=== PATIENT | female | born 1990 | race Caucasian/White ===

== ENCOUNTER 2019-05-10 18:05 | Emergency (ER) | payer OTHER, SELFPAY ==
[2019-05-10 18:14] VITALS: BP 138/68; PULSE 77; RESP 16; TEMP 36.6; O2SAT 100
--- NOTE | 2019-05-10 18:15 | ED.GENADULT ---
HPI - General Adult General Chief complaint: Dental/Oral Stated complaint: Tooth Ache Time Seen by Provider: 05/10/19 18:23 Source: patient and RN notes reviewed Mode of arrival: ambulatory Limitations: no limitations History of Present Illness HPI narrative: This patient's had a 3-week history of pain right lower jaw teeth. It hurts from the first second and third lower posterior teeth. She has a dental appointment scheduled for May 13, 2019. She has been taking ibuprofen and Tylenol which helps some of the discomfort. She is not had any drainage from around the teeth. No other teeth have been painful. She has not had any fever. She has not had any ear pain, no nasal drainage, no pain at the TMJs. She has had no hematuria, no dysuria, no pyuria. She has had no cough. She has had no nausea, no vomiting, no diarrhea. She has had no hematuria, no dysuria, no pyuria. She has had no rashes. Related Data Home Medications Medication Instructions Recorded Confirmed clonazepam 05/10/19 phentermine mg 05/10/19 sertraline mg 05/10/19 Allergies Allergy/AdvReac Type Severity Reaction Status Date / Time No Known Allergies Allergy Unknown Unverified 05/16/17 16:23 Review of Systems Review of Systems: Narrative: CONSTITUTIONAL: Denies fever, chills, or sweats. Noncontributory except as pertains to the past medical history and history the present illness. EYES: Denies visual changes, redness, or discharge. ENT: Denies rhinorrhea, congestion, sore throat, or otalgia. CARDIOVASCULAR: Denies chest pain, palpitations, or edema. RESPIRATORY: Denies cough or dyspnea. GASTROINTESTINAL: Denies abdominal pain, nausea, vomiting, or diarrhea. GENITOURINARY: Denies dysuria or hematuria. SKIN: Denies rash or itching. MUSCULOSKELETAL: Denies back pain, joint pain, or myalgia. NEUROLOGIC: Denies headache, numbness, or weakness. PSYCHIATRIC: Denies anxiety or depression. PMFSH Comments At time of signature, I have reviewed and agree with nursing past medical, surgical, social, and family history.Please see nursing chart for further information. There is no relevant family history pertinent to the presenting complaint. Exam Narrative: Exam Narrative: GENERAL: Well-appearing, well-nourished, and in no acute distress. HEAD: Normocephalic, atraumatic. EYES: PERRLA and EOMI. EARS: TM's clear bilaterally and the canals are clear. NOSE: Nares clear, no rhinorrhea or epistaxis. THROAT:Mucous membranes moist.Oropharynx normal without erythema or exudates. There are no TMJ clicks and no swelling of the TMJs or tenderness of the TMJs. She has full excursion of the TMJs without clicking, locking, or popping. The patient has percussion tenderness of the right first second and third lower molar teeth. There is no percussion tenderness of the other teeth. There is no swelling externally and no erythema of the skin overlying the teeth. NECK: Supple. No adenopathy of the neck, supraclavicular, axillary, or inguinal areas. There is no CVA pain. No pain McBurney's point. Patient is a negative Grullon sign and negative Rovsing sign. RESPIRATORY: No respiratory distress. Airway patent. Respirations non-labored. Clear to auscultation. There are no wheezes, no rales, no retractions, no use accessory muscle respirations patient's not cyanotic and not dyspneic. Pulse ox on room air is 100%. HEART: Regular rate and rhythm. No murmur heard. Normal peripheral pulses. ABDOMEN: Soft, nontender, nondistended, normal active bowel sounds.No masses. No rebound or guarding, No organomegaly. There are no pulsatile masses no audible bruits. EXTREMITIES: No clubbing/cyanosis/ edema. Normal strength & range of motion. SKIN: Warm, dry.Normal color. No rashes or skin lesions. Patient is well-nourished well-hydrated has moist mucous membranes and no tenting of the skin. NEURO: Alert and oriented. CN 2-12 grossly intact. No focal deficits. PSYCH: Normal mood and affect.
== END 2019-05-10 18:32 | disposition home or self-care (01) ==
LOC: EXPCOLL 18:08
PROVIDERS: Emergency Provider Family Medicine; PCP Family Medicine
DX: K04.7 Periapical abscess without sinus (principal); F41.9 Anxiety disorder, unspecified; F32.9 Major depressive disorder, single episode, unspecified
CPT/HCPCS: 99213; G0463

== ENCOUNTER 2019-12-02 11:31 | Emergency (ER) | payer OTHER, SELFPAY ==
--- NOTE | 2019-12-02 11:42 | ED.DENTAL ---
HPI - Dental/Oral General Chief complaint: Dental/Oral Stated complaint: tooth pain/Std testing History of Present Illness HPI Narrative: This is a 29-year-old comes in complaining right-sided tooth pain according to patient is been hurting for little bit but now it sensitive to touch. Patient states she is unable to brush her teeth without it being so sensitive or bleeding. Patient has a dentist but knows per patient he will treat her until the infection is gone and he is in [facility]. Patient states she has been taking Tylenol and ibuprofen for the pain but it has been throbbing and she cannot work like this. Related Data Home Medications Medication Instructions Recorded Confirmed ibuprofen 600 mg PO Q6H PRN 12/02/19 12/02/19 Allergies Allergy/AdvReac Type Severity Reaction Status Date / Time No Known Allergies Allergy Unknown Verified 12/02/19 11:37 Review of Systems Review of Systems: Narrative: CONSTITUTIONAL: Denies fever, chills, or sweats. EYES: Denies visual changes, redness, or discharge. ENT: Denies rhinorrhea, congestion, sore throat, or otalgia. right sided tooth pain cap to filling fell off CARDIOVASCULAR:Denies chest pain, palpitations, or edema. RESPIRATORY: Denies cough or dyspnea. GASTROINTESTINAL: Denies abdominal pain, nausea, vomiting, or diarrhea. GENITOURINARY: Denies dysuria or hematuria. SKIN:[Denies rash or itching. MUSCULOSKELETAL:Denies back pain, joint pain, or myalgia. NEUROLOGIC: Denies headache, numbness, or weakness. PSYCHIATRIC:Denies anxiety or depression PMFSH Social History Social History Gender identity (if verbalized by the patient): Female Comments At time as signature, I have reviewed and agree with nursing past medical, social, surgical and family history. Please see nursing chart for further information. There is no relevant family history pertinent to the presenting complaint. Exam Narrative: Exam Narrative: GENERAL:Well-appearing, well-nourished, and in no acute distress. HEAD:Normocephalic, atraumatic. EYES: PERRLA and EOMI. ENT: Nares clear, no rhinorrhea or epistaxis. Mucous membranes moist. Multiple fillings in upper and lower right side of mouth a few missing teeth multiple dental caries gumline slightly edematous on lower raw right jawline NECK: Supple. CHEST: Clear to auscultation. No respiratory distress. HEART: Regular rate and rhythm. No murmur heard. Normal peripheral pulses. ABDOMEN: Soft, nontender, nondistended, normal active bowel sounds. EXTREMITIES: Normal range of motion. No edema. SKIN: Warm, dry, no rash. NEURO: No focal deficits. Alert and oriented x3. Course Vital Signs Vital signs: Vital Signs Temperature 97.6 F 12/02/19 11:43 Pulse Rate 73 12/02/19 11:43 Respiratory Rate 16 12/02/19 11:43 Blood Pressure 114/75 12/02/19 11:43 Pulse Oximetry 100 12/02/19 11:43 Temperature 97.6 F 12/02/19 11:43 Pulse Rate 73 12/02/19 11:43 Respiratory Rate 16 12/02/19 11:43 Blood Pressure 114/75 12/02/19 11:43 Pulse Oximetry 100 12/02/19 11:43 Discharge Plan Discharge Clinical Impression: Toothache, Dental caries, Gingivitis Patient Disposition: Home, Self-Care Condition: Stable Instructions: Antibiotic Form, Dental Abscess (ED), Gingivitis (ED), Mouth Care (ED) Additional Instructions: instructions antibiotic as directed Avoid temperature extremes May apply heat or ice to the face Gentle brushing and flossing Alternate tylenol and ibuprofen as needed for pain Follow-up with the dentist as soon as possible--see the list provided Called in [facility] to [facility] [place] Prescriptions: New amoxicillin-pot clavulanate [Augmentin] 875-125 mg tablet 1 tablet PO Q12H 10 Days Qty: 20 RF: 0 No Action ibuprofen 600 mg tablet 600 mg PO Q6H PRN (Reason: Pain) RF: 0 Follow-up/Referrals: PHYSICIAN,CONDUIT CLEANER [Primary Care Provider] - Time of Dispo
[2019-12-02 11:43] VITALS: BP 114/75; PULSE 73; RESP 16; TEMP 36.4; O2SAT 100
== END 2019-12-02 12:05 | disposition home or self-care (01) ==
PROVIDERS: Emergency Provider Nurse Practitioner Family
DX: K02.9 Dental caries, unspecified (principal); K05.10 Chronic gingivitis, plaque induced
CPT/HCPCS: 99213; G0463

== ENCOUNTER 2020-06-07 19:09 | Emergency (ER) | payer OTHER, SELFPAY ==
--- NOTE | ~2020-06-07 | XR_ITS ---
XR ankle LT min 3V 06/07/2020 19:45 Indication: Ankle pain after recent fall Procedure: 4 views left ankle Comparison: 09/23/2009 Findings: There is a small loose body along the superior lateral margin of the talus. There is anatom ic alignment. No acute fracture or traumatic malalignment. There are mild degenerative changes. There is mild dorsal and medial soft tissue swelling. Impression: 1: No acute fracture. Reviewed, dictated and finalized at location A. IVE KILN CHARCOAL BURNER Impression: 1: No acute fracture.
--- NOTE | 2020-06-07 19:17 | ED.LOWEXIN ---
HPI - Extremity Injury (Lower) General Chief Complaint: Extremity Injury, Lower Stated Complaint: fell r ankle pain Time Seen by Provider: 06/07/20 19:27 Source: patient and RN notes reviewed Mode of arrival: ambulatory Limitations: no limitations History of Present Illness HPI Narrative: 29-year-old female presents with concern for left ankle injury. Reports she rolled her ankle last night while walking down the stairs 3 days ago. Reports this frequently happens to her. She reports swelling, redness, pain with weightbearing. Denies any decrease sensation, strength. MD complaint: ankle injury Related Data Home Medications Medication Instructions Recorded Confirmed No Home Medications 06/07/20 06/07/20 Allergies Allergy/AdvReac Type Severity Reaction Status Date / Time No Known Allergies Allergy Unknown Verified 06/07/20 19:20 Review of Systems Review of Systems: Narrative: CONSTITUTIONAL: Denies malaise, chills, sweats, or fever. SKIN: Denies abrasions, lacerations MUSCULOSKELETAL: Reports right ankle pain and swelling NEUROLOGIC: Denies numbness, weakness All systems reviewed & are unremarkable except as noted in HPI and below PMFSH Social History Social History Gender identity (if verbalized by the patient): Female Comments At time of signature, agree with nursing past medical, surgical, social and family history. There is no relevant family history pertinent to the presenting complaint Exam Narrative: Exam Narrative: GENERAL: Well-appearing, well-nourished, and in no acute distress. HEAD: Normocephalic, atraumatic. EYES: PERRLA, conjunctivae clear NECK: Supple. CHEST: Speaks in full sentences. No respiratory distress. HEART: Regular rate and rhythm. Normal and equal peripheral pulses. EXTREMITIES: Right ankle, foot, digits have normal sensation, limited range of motion due to pain. Mild edema and erythema, no ecchymosis. 5 No open wounds, no skin tenting, no devitalized tissue or atrophy, no trophic changes, no obvious deformity, alignment normal, nearby joints and structures intact. Distal pulses palpable and equal bilaterally, skin warm, dry, pink. Capillary refill less than 3 seconds. SKIN: Warm, dry, no rash. NEURO: Alert and oriented x3. PSYCH: Normal mood and affect Course Course Emergency Course: Patient is aware of diagnosis, understands and agrees to treatment plan. Anticipatory guidance given. Patient agrees to follow-up as directed and is aware of reasons to seek care at the emergency department. Portions of this record may have been created with voice recognition software Vital Signs Vital signs: Vital Signs Temperature 97.5 F L 06/07/20 19:20 Pulse Rate 97 06/07/20 19:20 Respiratory Rate 18 06/07/20 19:20 Blood Pressure 105/65 06/07/20 19:20 Pulse Oximetry 100 06/07/20 19:20 Temperature 97.5 F L 06/07/20 19:20 Pulse Rate 97 06/07/20 19:20 Respiratory Rate 18 06/07/20 19:20 Blood Pressure 105/65 06/07/20 19:20 Pulse Oximetry 100 06/07/20 19:20 Reviewed. MDM - Extremity Injury (Lower) MDM Narrative Medical decision making narrative: Patients injury and pain is consistent with musculoskeletal etiology. No signs of neurological or vascular compromise on exam. Compartments and tissues are soft without signs of compartment syndrome. Pain is felt appropriate for further evaluation on an outpatient basis. Imaging Data My impression: Images reviewed, interpreted by radiologist, agree, see report. Radiologist's impression: XR ankle LT min 3V 06/07/2020 19:45 Indication: Ankle pain after recent fall Procedure: 4 views left ankle Comparison: 09/23/2009 Findings: There is a small loose body along the superior lateral margin of the talus. There is anatomic alignment. No acute fracture or traumatic malalignment. There are mild degenerative changes. There is mild dorsal and medial soft tissue swelling. Impression: 1: No acute fracture. Critical Car
[2020-06-07 19:20] VITALS: BP 105/65; PULSE 97; RESP 18; TEMP 36.4; O2SAT 100
== END 2020-06-07 20:07 | disposition home or self-care (01) ==
PROVIDERS: Emergency Provider Nurse Practitioner
DX: S93.402A Sprain of unspecified ligament of left ankle, initial encounter (principal); S96.912A Strain of unspecified muscle and tendon at ankle and foot level, left foot, initial encounter; X50.9XXA Other and unspecified overexertion or strenuous movements or postures, initial encounter
CPT/HCPCS: 73610; 99213; G0463

== ENCOUNTER 2020-11-20 15:32 | Emergency (ER) | payer OTHER, SELFPAY ==
[2020-11-20 15:43] VITALS: BP 95/58; PULSE 74; RESP 18; TEMP 36.4; O2SAT 100
--- NOTE | 2020-11-20 15:51 | ED.GENADULT ---
HPI - General Adult General Chief complaint: Urogenital-Female Stated complaint: uti Time Seen by Provider: 11/20/20 15:51 Source: patient and RN notes reviewed Mode of arrival: ambulatory Limitations: no limitations History of Present Illness HPI narrative: 30-year-old female presents with urinary complaints for the past 7 days. Terrie reports increasing symptoms with treatment, worse the past 2-3 days. Dysuria consists of burning, frequency, pressure, and urgency. ?Azo (last taken on 11/19/2020), cranberry, and increased water intake without relief. ?Denies fever. ?No significant pelvic pain. ?No vaginal discharge.? No concerns for STDs. ?Exacerbating factors urinating.? Denies hematuria or vaginal bleeding. ?LMP 11/17/20. No flank pain. ?Denies nausea, vomiting, and abdominal pain.? Tolerating liquids well.? Remains active. ?The patient reports she has not been diagnosed with COVID-19. The patient reports she is not waiting for the results of a COVID-19 lab test. ?The patient reports she does not have chills, weakness, or fatigue. ?The patient reports she does not have a new or worsening cough or shortness of breath. ?Denies chest pain. ?The patient reports he does not have any rhinorrhea, congestion, loss of taste or smell, sore throat, and diarrhea. ?Denies recent traveling. Denies concerns for COVID-19 or exposures. ?At this time, the patient is not suspected of having COVID-19. ? Some parts of this dictation were generated by voice recognition software and may contain typographical and/or grammatical inaccuracies. Related Data Allergies Allergy/AdvReac Type Severity Reaction Status Date / Time No Known Allergies Allergy Unknown Verified 06/07/20 19:20 Review of Systems Review of Systems: CONSTITUTIONAL: Denies fever, chills, sweats. EYES: Denies visual changes, redness, discharge. ENT: Denies rhinorrhea, congestion, sore throat, otalgia. CARDIOVASCULAR: Denies chest pain, palpitations, edema. RESPIRATORY: Denies dyspnea, wheezing, cough. GASTROINTESTINAL: Denies abdominal pain, nausea, vomiting, diarrhea. GENITOURINARY: Complains of dysuria (burning, pressure, frequency, and urgency). Denies hematuria, abnormal discharge. SKIN: Denies rash or itching. MUSCULOSKELETAL: Denies acute back pain, joint pain, or myalgia. NEUROLOGIC: Denies numbness or focal weakness. PSYCHIATRIC: Denies anxiety or depression. All systems reviewed & are unremarkable except as noted in HPI and below. [facility] Past Medical History Medical History (Updated 11/21/20 @ 22:39 by PARUL Mendez) Anxiety Bipolar disorder Depression Surgical History Surgical History (Updated 11/21/20 @ 22:39 by PARUL Mendez) History of cholecystectomy History of tubal ligation Family History Family History (Updated 11/21/20 @ 22:40 by PARUL Mendez) Father , overdose Substance abuse Mother Hypertension Social History Social History (Updated 11/21/20 @ 22:41 by PARUL Mendez) Smoking status: Former smoker Tobacco type: cigarettes Second hand tobacco smoke exposure: No Smoking end date: 04/03/20 Alcohol intake: current Substance use: current Substance use type: marijuana Living arrangements: with family Occupation/Education: unemployed Gender identity (if verbalized by the patient): Female Sexual Orientation (if Verbalized by the Patient): Straight or Heterosexual Comments At time of signature, agree with the nurse past medical, surgical, social, and family history.? There is no relevant family history pertinent to the presenting complaint. Exam Narrative: GENERAL: This is a well-nourished, well-developed patient, in no apparent distress.? Talks in full sentences and ambulates with steady gait without dyspnea. HEAD: Normocephalic, atraumatic. EYES: PERRL. Sclera clear/white. Vision is grossly intact. CARDIOVASCULAR: Regular rate and rhythm without murmurs, gallops, or rubs. R
== END 2020-11-20 16:08 | disposition home or self-care (01) ==
PROVIDERS: Emergency Provider Nurse Practitioner Family
DX: R30.0 Dysuria (principal); Z87.891 Personal history of nicotine dependence
CPT/HCPCS: 81003; 87086; 87088; 87147; 99213; G0463

== ENCOUNTER 2021-03-02 06:55 | Outpatient (CLI) | payer OTHER, SELFPAY ==
--- NOTE | ~2021-03-02 | MR_ITS ---
EXAMINATION: MR cervical spine wo con DATE: 03/02/2021 08:07 INDICATION: Neck pain. TECHNIQUE: Magnetic resonance imaging (MRI) of the cervical spine was performed without intravenous c ontrast. Sequences included sagittal T2-weighted FSE, sagittal T2-weighted FS FSE, sagittal T1-weight ed FSE, axial MERGE, and axial T2-weighted FSE. COMPARISON: Cervical spine radiographs 04/20/2013 FINDINGS: There is 9 degrees dextrocurvature of cervical spine. Vertebral body heights and interverte bral disc heights are normal. The spinal cord signal intensity is normal. The following disc levels a re specifically discussed: C2-C3: The disc does not extend beyond the endplate margin. There is no uncovertebral joint osteoarth ritis. There is mild bilateral facet joint osteoarthritis. There is no neural foraminal stenosis. The re is no central canal stenosis. C3-C4: There is a central protrusion. There is no uncovertebral joint osteoarthritis. There is mild l eft facet joint osteoarthritis. There is no neural foraminal stenosis. There is no central canal sten osis. C4-C5: The disc does not extend beyond the endplate margin. There is no uncovertebral joint osteoarth ritis. There is mild left facet joint osteoarthritis. There is no neural foraminal stenosis. There is no central canal stenosis. C5-C6: There is a central protrusion. There is no uncovertebral joint osteoarthritis. There is mild b ilateral facet joint osteoarthritis. There is no neural foraminal stenosis. There is no central canal stenosis. C6-C7: There is a right central protrusion. There is no uncovertebral joint osteoarthritis. There is no facet joint osteoarthritis. There is no neural foraminal stenosis. There is mild central canal lonnie nosis. C7-T1: The disc does not extend beyond the endplate margin. There is no uncovertebral joint osteoarth ritis. There is mild bilateral facet joint osteoarthritis. There is no neural foraminal stenosis. The re is no central canal stenosis. IMPRESSION: 1. Mild cervical spondylosis. Reviewed, dictated and finalized at location A. UNT MANAGER SALES REPRESENTATIVE
== END 2021-03-02 06:56 | disposition home or self-care (01) ==
LOC: ANHIMG 06:59
PROVIDERS: Visit Provider Nurse Practitioner Family
DX: M47.892 Other spondylosis, cervical region (principal)
CPT/HCPCS: 72141

== ENCOUNTER → 2021-09-14 12:38 | Outpatient (CLI) | payer OTHER, SELFPAY ==
--- NOTE | ~2021-09-14 | XR_ITS ---
XR shoulder LT min 2V 09/14/2021 12:54 INDICATION: Chronic left shoulder pain PROCEDURE: 4 views left shoulder COMPARISON: 11/20/2007 FINDINGS: Fracture, dislocation or subluxation is not identified. There are degenerative changes of t he acromioclavicular joint. The soft tissues appear within normal limits. No foreign bodies are iden tified. IMPRESSION: 1: Mild osteoarthritis of the left acromioclavicular joint. Reviewed, dictated and finalized at location A.
== END ==
PROVIDERS: PCP Physician Assistant; Visit Provider Physician Assistant
DX: M19.012 Primary osteoarthritis, left shoulder (principal)
CPT/HCPCS: 73030

== ENCOUNTER 2023-02-08 12:23 | Emergency (ER) | payer OTHER, SELFPAY ==
[2023-02-08 12:36] VITALS: BP 110/68; PULSE 91; RESP 16; TEMP 36.6; O2SAT 100
--- NOTE | 2023-02-08 12:37 | ED.FEMALEGU ---
HPI - Female Genitourinary General Chief complaint: Urogenital-Female Stated complaint: UTI Time Seen by Provider: 02/08/23 12:37 Source: patient Mode of arrival: ambulatory Limitations: no limitations History of Present Illness HPI Narrative: Terrie is a 32-year-old female patient presenting to the clinic today with complaints of possible UTI. She reports she had a urinary tract infection approximately 1 month ago and was on antibiotics and start to feel better so she discontinued her antibiotics. She reports over the last week she is developing worsening of symptoms. Reports burning with urination low urine output and frequency. Denies any back pain or abdominal pain. Denies any fever but has had some chills and fatigue. Related Data Home Medications Medication Instructions Recorded Confirmed cariprazine 4.5 mg capsule 4.5 mg PO DIRECTED 02/08/23 02/08/23 (Vraylar) diazepam 5 mg tablet 5 mg PO DIRECTED 02/08/23 02/08/23 Allergies Allergy/AdvReac Type Severity Reaction Status Date / Time No Known Allergies Allergy Unknown Verified 02/08/23 12:24 Review of Systems Review of Systems: Pertinent positives per HPI. Patient denies any fever, rash, headache, visual changes, dizziness, cough, runny nose, sore throat, shortness of breath, chest pain, palpitations, nausea, vomiting, diarrhea, constipation, abdominal pain. [facility] Past Medical History Medical History Anxiety Bipolar disorder Depression Surgical History Surgical History History of cholecystectomy History of tubal ligation Family History Family History Father , overdose Substance abuse Mother Hypertension Social History Social History Smoking status: Former smoker Tobacco type: cigarettes Second hand tobacco smoke exposure: No Smoking end date: 04/03/20 Alcohol intake: current Substance use: current Substance use type: marijuana Living arrangements: with family Occupation/Education: unemployed Gender identity (if verbalized by the patient): Female Sexual Orientation (if Verbalized by the Patient): Straight or Heterosexual Comments At the time of my signature, I reviewed and agree with the nursing past medical, surgical, social, and family history. There is no relevant family history pertinent to the patient complaint. Course Course Emergency Course: Portions of this record may have been created with voice recognition software. Level of Care: Express Care Visit Vital Signs Vital signs: Vital Signs Temperature 36.6 C 02/08/23 12:36 Pulse Rate 91 02/08/23 12:36 Respiratory Rate 16 02/08/23 12:36 Blood Pressure 110/68 02/08/23 12:36 Pulse Oximetry 100 02/08/23 12:36 Oxygen Delivery Room Air 02/08/23 12:36 Temperature 36.6 C 02/08/23 12:36 Pulse Rate 91 02/08/23 12:36 Respiratory Rate 16 02/08/23 12:36 Blood Pressure 110/68 02/08/23 12:36 Pulse Oximetry 100 02/08/23 12:36 Oxygen Delivery Room Air 02/08/23 12:36 Vital signs reviewed MDM - Female Genitourinary MDM Narrative Medical decision making narrative: At the time of visit patient is resting comfortably on the exam table. Urinalysis was performed and shows 2+ leukocytes, trace of blood, 2+ protein, and trace ketone. I suspect patient has a urinary tract infection. Return precautions were reviewed. Will place patient on Augmentin. Supportive measures were discussed with the patient she voiced understanding discharge instructions and agrees to treatment plan. Differential Diagnosis Differential diagnosis: Likely urinary tract infection and cystitis Discharge Plan Discharge Clinical Impression: Urinary tract infection Qualifiers: Urinary tract infection type
== END 2023-02-08 12:50 | disposition home or self-care (01) ==
PROVIDERS: Emergency Provider Nurse Practitioner Family; PCP Physician Assistant
DX: N30.01 Acute cystitis with hematuria (principal); Z87.891 Personal history of nicotine dependence; F41.9 Anxiety disorder, unspecified; F31.9 Bipolar disorder, unspecified
CPT/HCPCS: 81003; 87086; 99213; G0463

== ENCOUNTER 2023-03-06 20:09 | Emergency (ER) | payer OTHER, SELFPAY ==
[2023-03-06 20:31] VITALS: BP 110/73; PULSE 97; RESP 16; TEMP 37.3; O2SAT 99
--- NOTE | 2023-03-06 20:56 | ED.FEMALEGU ---
HPI - Female Genitourinary General Chief complaint: Urogenital-Female Stated complaint: urinary issue Source: patient and RN notes reviewed Mode of arrival: ambulatory Limitations: no limitations History of Present Illness HPI Narrative: 32 y/o female presented for c/o urinary frequency, urgency, and pain with urination. Onset 3 days. Treated for UTI 3 weeks ago with Augmentin which she completed. She is scheduled with her OBGYN in 5 days. Denies abdominal pain, nausea, vomiting, diarrhea, hematuria, flank pain or vaginal discharge. no concern for std. Related Data Home Medications Medication Instructions Recorded Confirmed cariprazine 4.5 mg capsule 4.5 mg PO DIRECTED 02/08/23 03/06/23 (Vraylar) Allergies Allergy/AdvReac Type Severity Reaction Status Date / Time No Known Allergies Allergy Unknown Verified 03/06/23 20:48 Review of Systems Review of Systems: CONSTITUTIONAL: Denies body aches, fever, chills, or sweats. CARDIOVASCULAR: Denies chest pain, palpitations, or edema. RESPIRATORY: Denies cough or dyspnea. GASTROINTESTINAL: Denies abdominal pain, nausea, vomiting, or diarrhea. GENITOURINARY: Reports dysuria, frequency, urgency, denies hematuria, flank pain SKIN: Denies rash, itching, or wounds. MUSCULOSKELETAL: Denies back pain or myalgia. [facility]LY [facility] Past Medical History Medical History Anxiety Bipolar disorder Depression Surgical History Surgical History History of cholecystectomy History of tubal ligation Family History Family History Father , overdose Substance abuse Mother Hypertension Social History Social History Smoking status: Former smoker Tobacco type: cigarettes Second hand tobacco smoke exposure: No Smoking end date: 04/03/20 Alcohol intake: current Substance use: current Substance use type: marijuana Living arrangements: with family Occupation/Education: unemployed Gender identity (if verbalized by the patient): Female Sexual Orientation (if Verbalized by the Patient): Straight or Heterosexual Comments At time of signature, I have reviewed and agree with nursing past medical, surgical, social and family history unless otherwise noted. Please see nursing chart for further information. There is no relevant family history pertinent to the presenting complaint Exam Narrative: GENERAL: Well-appearing and in no acute distress. ENT: Mucous membranes pink and moist. NECK: Normal AROM. Supple. CHEST: No respiratory distress. Clear to auscultation. HEART: Regular rate and rhythm. ABDOMEN: Soft, nontender, nondistended, normal active bowel sounds. No CVA tenderness SKIN: Warm, dry, no rash. NEURO: No focal deficits. Alert and oriented x3. Gait steady. PSYCH: Normal affect. Course Course Emergency Course: Patient is aware of diagnosis, understands and agrees to treatment plan. Anticipatory guidance given. Patient agrees to follow-up as directed and is aware of reasons to seek care at the emergency department. Portions of this record may have been created with voice recognition software Level of Care: Express Care Visit Vital Signs Vital signs: Vital Signs Temperature 99.2 F 03/06/23 20:31 Pulse Rate 97 03/06/23 20:31 Respiratory Rate 16 03/06/23 20:31 Blood Pressure 110/73 03/06/23 20:31 Pulse Oximetry 99 03/06/23 20:31 Oxygen Delivery Room Air 03/06/23 20:31 Temperature 99.2 F 03/06/23 20:31 Pulse Rate 97 03/06/23 20:31 Respiratory Rate 16 03/06/23 20:31 Blood Pressure 110/73 03/06/23 20:31 Pulse Oximetry 99 03/06/23 20:31 Oxygen Delivery Room Air 03/06/23 20:31 Reviewed MDM - Female Genitourinary MDM Narrative Medical decision making narrative:
== END 2023-03-06 21:12 | disposition home or self-care (01) ==
PROVIDERS: Emergency Provider Nurse Practitioner Family; PCP Family Medicine
DX: N39.0 Urinary tract infection, site not specified (principal); B96.20 Unspecified Escherichia coli [E. coli] as the cause of diseases classified elsewhere; Z87.891 Personal history of nicotine dependence; F31.9 Bipolar disorder, unspecified
CPT/HCPCS: 81003; 87077; 87086; 87186; 99213; G0463

== ENCOUNTER 2024-03-07 18:37 | Emergency (ER) | payer OTHER, SELFPAY ==
--- NOTE | ~2024-03-07 | XR_ITS ---
EXAMINATION: XR chest 2V DATE: 03/07/2024 19:21 INDICATION: Cough. TECHNIQUE: Frontal and lateral views of the chest were obtained. COMPARISON: Chest 2 views 11/20/2007 FINDINGS: There is no pneumonia, pleural effusion, or pneumothorax. The heart size is normal. IMPRESSION: 1. No acute cardiopulmonary disease. Reviewed, dictated and finalized at location A. [facility]
--- NOTE | 2024-03-07 18:52 | ED.URI ---
HPI - URI/Sore Throat General Chief Complaint: Upper Respiratory Infection Stated Complaint: Sinus Time Seen by Provider: 03/07/24 19:00 Source: patient, RN notes reviewed and old records reviewed Mode of arrival: ambulatory Limitations: no limitations History of Present Illness HPI Narrative: Patient presents with 2-3 weeks of cough. She reports that she has had less energy than usual, cough is worse at night. She read describes cough as dry and hacking. She does report that she has had multiple close contacts with ?walking pneumonia?. Says that she is concerned about this. She is unsure fever status, states that thermometer at home is not working properly. She denies any shortness of breath. She voices no other concerns or complaints at this time. Related Data Home Medications Medication Instructions Recorded Confirmed cariprazine 4.5 mg capsule 4.5 mg PO DIRECTED 02/08/23 03/07/24 (Vraylar) Allergies Allergy/AdvReac Type Severity Reaction Status Date / Time No Known Allergies Allergy Unknown Verified 03/07/24 18:40 Review of Systems Review of Systems: All systems reviewed & are unremarkable except as noted in HPI and below Constitutional: Constitutional: Reports no additional constitutional complaints ENT: Reports system reviewed and no additional complaints, except as documented Cardiovascular: Cardiovascular: Reports no additional cardiovascular complaints Respiratory: Respiratory: Reports no additional respiratory complaints, Reports chest congestion and Reports cough Gastrointestinal: Gastrointestinal: Reports no additional gastrointestinal complaints PMFSH Past Medical History Medical History Anxiety Bipolar disorder Depression Surgical History Surgical History History of cholecystectomy History of tubal ligation Family History Family History Father , overdose Substance abuse Mother Hypertension Social History Social History Smoking status: Former smoker Tobacco type: cigarettes Second hand tobacco smoke exposure: No Smoking end date: 04/03/20 Alcohol intake: current Substance use: current Substance use type: marijuana Living arrangements: with family Occupation/Education: unemployed Gender identity (if verbalized by the patient): Female Sexual Orientation (if Verbalized by the Patient): Straight or Heterosexual Comments At the time of my signature, I reviewed and agree with the nursing past medical, surgical, social, and family history. There is no relevant family history pertinent to the patient complaint. Exam Const: General: cooperative, no acute distress, alert, awake and tired appearing Orientation/consciousness: oriented to person, oriented to place and oriented to time HENMT: Head: normal to inspection Ears: TM's normal bilaterally Mouth: Yes moist mucous membranes Resp: Effort & Inspection: normal respiratory effort and able to speak in complete sentences Auscultation: clear to auscultation bilaterally, no crackles, no rales, no rhonchi and no wheezes Other: deep hacking cough noted Cardio: Palpation: normal PMI Rate: regular rate Rhythm: regular rhythm Heart sounds: S1 normal heart sound present and S2 normal heart sound present Neuro: General: oriented to person, oriented to place and oriented to time Cranial nerves: Yes CN's II-XII intact bilaterally Psych: Appearance: grossly normal Thought process: Normal thought process present Insight: Good insight present (Psych) Judgement: Good judgement present (Psych) Course Course Level of Care: Express Care Visit Vital Signs Vital signs: Vital Signs Temperature 97.4 F L 03/07/24 18:53 Pulse Rate 77 03/07/24 18:53 Respiratory Rate 20 03/07/24 18:53 Blood Pressure 100/74 03/07/24 18:53 Pulse Oximetry 97 03/07/24 18:53 Oxygen Delivery Room Air 03/07/24 18:53 Temperature 97.4 F L 03/07/24 18:53 Pulse Rate 77 03/07/24 18:53 Respiratory Rate 20 03/07/24 18:53 Blood Pressure 100/74 03/07/24 18:53 Pulse Oximetry 97 03/07/24 18:53 Oxygen Delivery Room Air 03/07/24 18:53 Reviewed MDM - URI/Sore Throat MDM Narrative Medical decision making narrative: No acute findings on chest x-ray, possibly some prominent bronchial markings. History consistent with atypical pneumonia, patient reports multiple positive close contacts. Treat as such. Discharge instructions reviewed with patient, as well as provided in writing per nursing staff. The instructions also include specific and strict return/GO TO THE ER as well as f/u information. All questions have been answered, and the patient deny any further questions with discharge and discharge plan. Some parts of this dictation were generated by voice recognition software and may contain typographical and/or grammatical inaccuracies. Differential Diagnosis Differential diagnosis: Likely upper respiratory infection, viral infection, influenza and pharyngitis Medical Records Attestation: I reviewed the patient's medical records. Imaging Data Attestation: I personally reviewed and interpreted this imaging study as follows: My impression: Prominent bronchial markings Radiologist's impression: No acute findings Discharge Plan Discharge Clinical Impression: Atypical pneumonia Patient Disposition: Home, Self-Care Condition: Stable Instructions: Antibiotic Form, Pneumonia (ED) Additional Instructions: Take medications as prescribed. Follow-up with primary care provider. Emergency department for new or worse symptoms Patient Language: Tunisian Prescriptions: New azithromycin 250 mg tablet See Rx Instructions .ROUTE .COMPLEX Qty: 6 0RF Rx Instructions: For 250 mg dose pack: take 500 mg today (day 1), then 250 mg for 4 days (days 2-5) No Action Vraylar 4.5 mg capsule 4.5 mg PO DIRECTED Follow-up/Referrals: Funmi,Dillon Mistry MD [Primary Care Provider] - 1 Week Time of Disposition: 19:47
[2024-03-07 18:53] VITALS: BP 100/74; PULSE 77; RESP 20; TEMP 36.3; O2SAT 97
== END 2024-03-07 19:55 | disposition home or self-care (01) ==
PROVIDERS: Emergency Provider Nurse Practitioner Family; PCP Family Medicine
DX: J18.9 Pneumonia, unspecified organism (principal); Z87.891 Personal history of nicotine dependence; F31.9 Bipolar disorder, unspecified
CPT/HCPCS: 71046; 99213; G0463